=== PATIENT | female | born 1940 | race Caucasian/White ===

== ENCOUNTER 2016-07-03 15:59 | Inpatient (IN) | payer OTHER ==
[~2016-07-03] VITALS: Ht 157.5 cm; Wt 77.8 kg
[2016-07-03] MEDS ORDERED: DOXAZOSIN MESYLA4 MG PO (16:23)
[2016-07-03] MEDS ORDERED: HYDROCHLOROTHIA25 M1 PO (16:24)
[2016-07-03] MEDS ORDERED: TAPAZOLE5 MG PO (16:25)
[2016-07-03 16:48] LABS: BASO % 0.6 % (0.0-1.0); EOS # 0.2 10*3/uL (0.0-0.4); EOS % 2.9 % (1.0-4.0); HEMATOCRIT 34.8 % (37.0-47.0); HEMOGLOBIN 11.6 g/dl (12.0-16.0); LYMPH % 30.3 % (27.0-41.0); MEAN CELL VOLUME 87.4 fl (81.0-99.0); MEAN CORPUSCULAR HGB 29.1 pg (27.0-31.0); MEAN CORPUSCULAR HGB CONC 33.3 g/dl (33.0-37.0); MEAN PLATELET VOLUME 8.5 fl (9.6-12.3); MONO # 0.5 10*3/uL (0.1-1.0); MONO % 7.2 % (3.0-9.0); NEUT # 3.9 10*3/uL (2.3-7.9); NEUT % 58.7 % (47.0-73.0); PLATELET COUNT AUTOMATED 268 10*3/uL (130-400); RED BLOOD COUNT 3.98 10*6/uL (4.10-5.10); RED CELL DISTRI WIDTH 15.2 % (0-14.5); WHITE BLOOD COUNT 6.6 10*3/uL (4.8-10.8)
[2016-07-03 16:57] LABS: PROTHROMBIN TIME 10.5 SECONDS (9.0-12.4)
[2016-07-03 17:06] LABS: ALBUMIN 3.3 gm/dl (3.1-4.5); ALKALINE PHOSPHATASE 72 U/L (45-117); BILIRUBIN, TOTAL 0.4 mg/dl (0.2-1.0); BUN 23 mg/dl (7-24); CARBON DIOXIDE 28 mmol/L (21-32); CHLORIDE 104 mmol/L (98-107); CKMB 0.5 ng/ml (0.5-3.6); CPK 53 U/L (26-192); EST GLOM FILT AFRICAN AMERICAN > 60 ml/min; GLUCOSE 118 mg/dL (65-99); MAGNESIUM 2.3 mg/dL (1.5-2.1); POTASSIUM 3.3 mmol/L (3.5-5.1); SGOT/AST 19 IU/L (3-35); SGPT/ALT 19 U/L (12-78); SODIUM 143 mmol/L (136-145)
[2016-07-03 17:08] LABS: C-REACTIVE PROTEIN < 0.29 MG/DL (0-0.3); TROPONIN I < 0.015 ng/ml (<0.045)
[2016-07-03] MEDS ORDERED: ATORVASTATIN CA10 M1 PO (21:41)
[2016-07-03] MEDS ORDERED: VITAMIN D-32000 UNIT PO (22:40)
[2016-07-03] MEDS ORDERED: VITAMIN C500 M4 PO (22:41)
[2016-07-03] MEDS ORDERED: MAGNESIUM200 MG PO (22:41)
[2016-07-04 04:49] LABS: BUN 19 mg/dl (7-24); CARBON DIOXIDE 28 mmol/L (21-32); CHLORIDE 108 mmol/L (98-107); CHOLESTEROL 186 mg/dL (<200); EST GLOM FILT AFRICAN AMERICAN > 60 ml/min; GLUCOSE 114 mg/dL (65-99); POTASSIUM 3.9 mmol/L (3.5-5.1); SODIUM 143 mmol/L (136-145); TRIGLYCERIDES 64 mg/dl (<150); VLDL CHOLESTEROL 13 mg/dL (6-40)
[2016-07-04 04:58] LABS: FREE T4 0.87 ng/dl (0.76-1.46); HDL CHOLESTEROL 77 mg/dl (40-60); LDL CHOLESTEROL 96 mg/dL (9-159)
[2016-07-04 05:51] LABS: HEMOGLOBIN A1c 5.6 % (4.8-5.6)
[2016-07-04 06:08] LABS: VITAMIN D, 25-HYDROXY 23.6 ng/mL (30-100)
[2016-07-04 06:09] LABS: FOLIC ACID 16.19 ng/mL (>5.38)
[2016-07-04 06:19] LABS: BASO % 0.3 % (0.0-1.0); EOS % 0.1 % (1.0-4.0); HEMATOCRIT 32.9 % (37.0-47.0); HEMOGLOBIN 10.7 g/dl (12.0-16.0); IG # 0.1 10*3/uL (0.0-0.1); LYMPH # 1.4 10*3/uL (1.3-4.4); LYMPH % 10.2 % (27.0-41.0); MEAN CORPUSCULAR HGB 28.6 pg (27.0-31.0); MEAN CORPUSCULAR HGB CONC 32.5 g/dl (33.0-37.0); MEAN PLATELET VOLUME 9.2 fl (9.6-12.3); MONO # 0.8 10*3/uL (0.1-1.0); NEUT # 11.5 10*3/uL (2.3-7.9); PLATELET COUNT AUTOMATED 284 10*3/uL (130-400); RED BLOOD COUNT 3.74 10*6/uL (4.10-5.10); RED CELL DISTRI WIDTH 15.5 % (0-14.5); WHITE BLOOD COUNT 13.8 10*3/uL (4.8-10.8)
[2016-07-04 16:19] LABS: BILIRUBIN NEGATIVE (NEGATIVE); BLOOD NEGATIVE (NEGATIVE); CLARITY SL CLOUDY (CLEAR); COLOR YELLOW (YELLOW); GLUCOSE NEGATIVE (NEGATIVE); KETONE NEGATIVE (NEGATIVE); LEUKO ESTERASE NEGATIVE (NEGATIVE); NITRITE NEGATIVE (NEGATIVE); PROTEIN NEGATIVE (NEGATIVE); SPECIFIC GRAVITY <= 1.005 (1.005-1.030); UROBILINOGEN 0.2 E.U./dl (0.2-1.0)
[2016-07-04 16:31] LABS: BACTERIA 1+; EPITHELIAL CELLS 0-2; RBC 0-2 rbc/hpf (0-2); URINE REFLEX COMMENT NO (NO); WBC 0-2 wbc/hpf (0-5)
[2016-07-05] MEDS ORDERED: LOPRESSOR25 MG PO (10:35)
== END 2016-07-05 12:36 | disposition home or self-care (01) | DRG 312 ==
LOC: ED 15:59 → EDHOLD 20:16 → 4E 20:16
PROVIDERS: Internal Medicine Hospice and Palliative Medicine; Nurse Practitioner Family
DX: R55 Syncope and collapse (principal); E44.0 Moderate protein-calorie malnutrition; D64.9 Anemia, unspecified; E83.41 Hypermagnesemia; E05.90 Thyrotoxicosis, unspecified without thyrotoxic crisis or storm; I16.1 Hypertensive emergency; R73.9 Hyperglycemia, unspecified; E87.6 Hypokalemia; I10 Essential (primary) hypertension; D72.829 Elevated white blood cell count, unspecified; Z90.49 Acquired absence of other specified parts of digestive tract; Z98.51 Tubal ligation status; Z82.49 Family history of ischemic heart disease and other diseases of the circulatory system; Z82.5 Family history of asthma and other chronic lower respiratory diseases; Z88.8 Allergy status to other drugs, medicaments and biological substances; Z79.899 Other long term (current) drug therapy; Z68.31 Body mass index [BMI] 31.0-31.9, adult

== ENCOUNTER 2018-09-04 18:58 | Emergency (ER) | payer OTHER ==
[~2018-09-04] VITALS: Ht 157.4 cm; Wt 63.5 kg
--- NOTE | ~2018-09-04 | EKG ---
[place], [place] ELECTROCARDIOGRAM REPORT NAME: ZEFERINO MERIDA UNIT #: [id number] ROOM: DOCTOR: EPIPHANY DRAFT REPORT BIRTHDATE: [birth year] [facility] Test Date: 2018-09-04 Test Time: 21:21:26 Pat Name: ZEFERINO MERIDA Department: Room: Gender: F [employer]ocker: Re Ramirez : 1940 Requested By: NISHANT OLEA PA-C Order Number: [id number] Reading MD: Min Atkinson MD Measurements Intervals [place] Rate: 99 P: 75 MD: 240 QRS: 70 QRSD: 89 T: 90 QT: 347 QTc: 446 Interpretive Statements Sinus rhythm Prolonged MD interval Borderline repolarization abnormality No previous ECG available for comparison Electronically Signed On 09-05-2018 15:47:56 PDT by Min Atkinson MD CM:EKGRPT:ELECTROCARDIOGRAM REPORT 20 [id number] NISHANT OLEA PA-C EPIPHANY DRAFT REPORT NISHANT OLEA PA-C
[~2018-09-04 18:58] MED LIST: ATORVASTATIN CA10 M1 PO; DOXAZOSIN MESYLA4 MG PO; HYDROCHLOROTHIA25 M1 PO; LOPRESSOR25 MG PO; MAGNESIUM200 MG PO; TAPAZOLE5 MG PO; VITAMIN C500 M4 PO; VITAMIN D-32000 UNIT PO
[2018-09-04 19:48] LABS: BASO % 0.5 % (0.0-1.0); EOS # 0.2 10*3/uL (0.0-0.4); EOS % 2.4 % (1.0-4.0); HEMATOCRIT 35.4 % (37.0-47.0); HEMOGLOBIN 11.7 g/dl (12.0-16.0); LYMPH # 2.5 10*3/uL (1.3-4.4); LYMPH % 32.1 % (27.0-41.0); MEAN CELL VOLUME 88.5 fl (81.0-99.0); MEAN CORPUSCULAR HGB 29.3 pg (27.0-31.0); MEAN CORPUSCULAR HGB CONC 33.1 g/dl (33.0-37.0); MEAN PLATELET VOLUME 9.3 fl (9.6-12.3); MONO # 0.7 10*3/uL (0.1-1.0); MONO % 8.7 % (3.0-9.0); NEUT # 4.4 10*3/uL (2.3-7.9); NEUT % 56.2 % (47.0-73.0); PLATELET COUNT AUTOMATED 299 10*3/uL (130-400); RED CELL DISTRI WIDTH 13.8 % (0-14.5); WHITE BLOOD COUNT 7.8 10*3/uL (4.8-10.8)
[2018-09-04 20:00] LABS: ACT PARTIAL THROMBO TIME 20.9 SECONDS (20.0-32.1); INTERNATIONAL NORM RATIO 0.9 (2.0-3.5)
[2018-09-04 20:17] LABS: ALBUMIN 3.4 gm/dl (3.1-4.5); CREATININE 1.15 mg/dL (0.55-1.02); POTASSIUM 3.1 mmol/L (3.5-5.1); TOTAL PROTEIN 7.3 gm/dL (6.4-8.2)
== END 2018-09-04 21:35 | disposition short-term general hospital (02) ==
LOC: ED 18:58
PROVIDERS: Physician Assistant
DX: I70.291 Other atherosclerosis of native arteries of extremities, right leg (principal); I10 Essential (primary) hypertension; E78.5 Hyperlipidemia, unspecified; Z98.51 Tubal ligation status; Z90.49 Acquired absence of other specified parts of digestive tract; Z98.890 Other specified postprocedural states; Z79.899 Other long term (current) drug therapy; Z88.8 Allergy status to other drugs, medicaments and biological substances

== ENCOUNTER 2021-06-17 23:42 | Emergency (ER) | payer OTHER ==
[~2021-06-17] VITALS: Ht 157.4 cm; Wt 71.3 kg
[2021-06-18 04:44] LABS: BASO % 0.4 % (0.0-1.0); EOS # 0.1 10*3/uL (0.0-0.4); EOS % 1.4 % (1.0-4.0); HEMATOCRIT 33.7 % (37.0-47.0); LYMPH # 1.5 10*3/uL (1.3-4.4); LYMPH % 16.2 % (27.0-41.0); MEAN CELL VOLUME 89.9 fl (81.0-99.0); MEAN CORPUSCULAR HGB 30.4 pg (27.0-31.0); MEAN CORPUSCULAR HGB CONC 33.8 g/dl (33.0-37.0); MEAN PLATELET VOLUME 8.8 fl (9.6-12.3); MONO # 0.6 10*3/uL (0.1-1.0); MONO % 6.3 % (3.0-9.0); NEUT % 75.5 % (47.0-73.0); PLATELET COUNT AUTOMATED 259 10*3/uL (130-400); RED BLOOD COUNT 3.75 10*6/uL (4.10-5.10); RED CELL DISTRI WIDTH 15.6 % (0-14.5); WHITE BLOOD COUNT 9.3 10*3/uL (4.8-10.8)
[2021-06-18 04:53] LABS: INTERNATIONAL NORM RATIO 1.1 (2.0-3.5)
[2021-06-18 04:56] LABS: ALKALINE PHOSPHATASE 104 U/L (45-117); BUN 28 mg/dl (7-24); CHLORIDE 107 mmol/L (98-107); CREATININE 1.04 mg/dL (0.55-1.02); POTASSIUM 3.5 mmol/L (3.5-5.1); SGOT/AST 27 IU/L (3-35); SGPT/ALT 22 U/L (12-78); SODIUM 141 mmol/L (136-145); TOTAL PROTEIN 6.9 gm/dL (6.4-8.2)
== END 2021-06-18 07:21 | disposition short-term general hospital (02) ==
LOC: ED 23:42
PROVIDERS: Emergency Medicine
DX: S01.81XA Laceration without foreign body of other part of head, initial encounter (principal); I10 Essential (primary) hypertension; E66.9 Obesity, unspecified; E03.9 Hypothyroidism, unspecified; Z88.8 Allergy status to other drugs, medicaments and biological substances; Z79.899 Other long term (current) drug therapy; Z98.51 Tubal ligation status; Z90.89 Acquired absence of other organs; Z90.49 Acquired absence of other specified parts of digestive tract; Z98.890 Other specified postprocedural states; W18.39XA Other fall on same level, initial encounter; Y93.89 Activity, other specified; Y92.89 Other specified places as the place of occurrence of the external cause; Y99.8 Other external cause status

== ENCOUNTER → 2021-11-09 | Outpatient (CLI) | payer OTHER ==
[2021-11-09 12:50] LABS: BUN 29 mg/dl (7-24)
== END | disposition home or self-care (01) ==
LOC: LAB 12:20 → CT 13:00
PROVIDERS: ATTEND Urology
DX: K86.9 Disease of pancreas, unspecified (principal); K57.30 Diverticulosis of large intestine without perforation or abscess without bleeding; M47.816 Spondylosis without myelopathy or radiculopathy, lumbar region; M48.061 Spinal stenosis, lumbar region without neurogenic claudication

== ENCOUNTER 2023-04-28 15:49 | Emergency (ER) | payer OTHER ==
[~2023-04-28] VITALS: Ht 157.4 cm; Wt 66.7 kg
[2023-04-28 16:38] LABS: BASO % 0.5 % (0.0-1.0); EOS # 0.2 10*3/uL (0.0-0.4); EOS % 1.9 % (1.0-4.0); HEMATOCRIT 27.4 % (37.0-47.0); LYMPH # 0.9 10*3/uL (1.3-4.4); LYMPH % 10.9 % (27.0-41.0); MEAN CELL VOLUME 97.2 fl (81.0-99.0); MEAN CORPUSCULAR HGB 30.1 pg (27.0-31.0); MEAN PLATELET VOLUME 9.6 fl (9.6-12.3); MONO # 0.7 10*3/uL (0.1-1.0); MONO % 7.8 % (3.0-9.0); NEUT # 6.7 10*3/uL (2.3-7.9); NEUT % 78.7 % (47.0-73.0); PLATELET COUNT AUTOMATED 333 10*3/uL (130-400); RED BLOOD COUNT 2.82 10*6/uL (4.10-5.10); RED CELL DISTRI WIDTH 16.4 % (0-14.5); WHITE BLOOD COUNT 8.6 10*3/uL (4.8-10.8)
[2023-04-28 16:55] LABS: POTASSIUM 4.3 mmol/L (3.4-5.1)
[2023-04-28] MEDS ORDERED: MEDROL DOSEPAK4 MG PO (17:42)
[2023-04-28] MEDS ORDERED: VIBRAMYCIN100 MG PO (17:42)
[2023-04-28] MEDS ORDERED: CEPHALEXIN500 M1 PO (17:42)
[2023-04-28] MEDS ORDERED: SEPTDS PO (17:55)
== END 2023-04-28 17:47 | disposition home or self-care (01) ==
LOC: ED 15:49
PROVIDERS: Physician Assistant Medical
DX: L03.116 Cellulitis of left lower limb (principal); I13.0 Hypertensive heart and chronic kidney disease with heart failure and stage 1 through stage 4 chronic kidney disease, or unspecified chronic kidney disease; N18.30 Chronic kidney disease, stage 3 unspecified; I50.9 Heart failure, unspecified; E78.5 Hyperlipidemia, unspecified; Z86.718 Personal history of other venous thrombosis and embolism; E03.9 Hypothyroidism, unspecified; Z88.8 Allergy status to other drugs, medicaments and biological substances; Z90.49 Acquired absence of other specified parts of digestive tract; Z98.890 Other specified postprocedural states; Z90.89 Acquired absence of other organs; Z98.51 Tubal ligation status

== ENCOUNTER → 2023-05-15 | Outpatient (CLI) | payer OTHER ==
[~2023-05-15] MED LIST changes: +CEPHALEXIN500 M1 PO; +MEDROL DOSEPAK4 MG PO; +SEPTDS PO; +VIBRAMYCIN100 MG PO
== END | disposition home or self-care (01) ==
LOC: US 01:40
PROVIDERS: ATTEND Internal Medicine
DX: I73.9 Peripheral vascular disease, unspecified (principal); R60.0 Localized edema; N18.9 Chronic kidney disease, unspecified; J98.4 Other disorders of lung

== ENCOUNTER → 2023-05-31 | Outpatient (CLI) | payer MEDICARE | END | disposition home or self-care (01) | LOC: CARD 00:15 | PROVIDERS: ATTEND Internal Medicine | DX: I08.8 Other rheumatic multiple valve diseases (principal) ==

== ENCOUNTER → 2023-06-20 | Outpatient (CLI) | payer MEDICARE ==
[~2023-06-20] MED LIST changes: +ALLOPURINOL100 MG PO; +BUMETANIDE2 MG PO; +COREG6.25 MG PO; +ELIQUIS5 M1 PO; +ENTRESTO 24 MG1 EACH PO; +JARDIANCE10 MG PO; +NEURONTIN100 MG PO; +POTASSIUM CHLO20 ME4 PO; +POTASSIUM99 M7 PO
== END | disposition home or self-care (01) ==
LOC: RESCLI 02:46
PROVIDERS: ATTEND Student in an Organized Health Care Education/Training Program
DX: E87.6 Hypokalemia (principal); N32.81 Overactive bladder; I82.409 Acute embolism and thrombosis of unspecified deep veins of unspecified lower extremity; N89.8 Other specified noninflammatory disorders of vagina; M10.9 Gout, unspecified; H92.09 Otalgia, unspecified ear; Z00.00 Encounter for general adult medical examination without abnormal findings; E78.5 Hyperlipidemia, unspecified; I11.0 Hypertensive heart disease with heart failure; I50.9 Heart failure, unspecified; Z98.890 Other specified postprocedural states; Z79.899 Other long term (current) drug therapy; Z88.8 Allergy status to other drugs, medicaments and biological substances

== ENCOUNTER 2023-06-27 13:01 | Inpatient (IN) | payer MEDICARE ==
[~2023-06-27] VITALS: Ht 157.5 cm; Wt 63.6 kg
[~2023-06-27 13:01] MED LIST changes: -ALLOPURINOL100 MG PO; -BUMETANIDE2 MG PO; +CHAIR CUSHION DEVICE ONE; -COREG6.25 MG PO; -ELIQUIS5 M1 PO; -ENTRESTO 24 MG1 EACH PO; -JARDIANCE10 MG PO; -NEURONTIN100 MG PO; -POTASSIUM CHLO20 ME4 PO; -POTASSIUM99 M7 PO
[2023-06-27 13:10] VITALS: BP 138/72
[2023-06-27 13:31] LABS: BASO % 0.6 % (0.0-1.0); EOS # 0.1 10*3/uL (0.0-0.4); EOS % 2.1 % (1.0-4.0); HEMATOCRIT 34.4 % (37.0-47.0); LYMPH # 1.6 10*3/uL (1.3-4.4); MEAN CELL VOLUME 91.5 fl (81.0-99.0); MEAN CORPUSCULAR HGB 27.9 pg (27.0-31.0); MEAN CORPUSCULAR HGB CONC 30.5 g/dl (33.0-37.0); MEAN PLATELET VOLUME 8.8 fl (9.6-12.3); MONO # 0.8 10*3/uL (0.1-1.0); NEUT # 4.2 10*3/uL (2.3-7.9); PLATELET COUNT AUTOMATED 265 10*3/uL (130-400); RED BLOOD COUNT 3.76 10*6/uL (4.10-5.10); RED CELL DISTRI WIDTH 18.5 % (0-14.5); WHITE BLOOD COUNT 6.8 10*3/uL (4.8-10.8)
[2023-06-27 13:46] LABS: ACT PARTIAL THROMBO TIME 27.6 SECONDS (20.0-32.1)
[2023-06-27 13:52] LABS: ALKALINE PHOSPHATASE 103 U/L (46-116); BUN 27 mg/dl (9-23); CHLORIDE 103 mmol/L (98-107); LIPASE 37 U/L (12-53); SGPT/ALT 11 U/L (5-49); TOTAL PROTEIN 7.3 gm/dL (6.0-8.0)
[2023-06-27] MEDS ORDERED: FUROSEMIDE 40 MG/4 ML VIAL IV ONE (15:25)
[2023-06-27] MEDS ORDERED: Ceftriaxone Sodium 2 GM,IV 1 EA in SYRINGE INFUSION 20 ML IV SCH (17:00)
[2023-06-27] MEDS ORDERED: ELIQUIS5 M1 PO (17:00)
[2023-06-27] MEDS ORDERED: NEURONTIN100 MG PO (17:01)
[2023-06-27] MEDS ORDERED: POTASSIUM99 M7 PO (17:02)
[2023-06-27] MEDS ORDERED: ALLOPURINOL100 MG PO (17:03)
[2023-06-27] MEDS ORDERED: BUMETANIDE2 MG PO (17:04)
[2023-06-27 19:43] VITALS: BP 159/57
[2023-06-27 21:00] VITALS: BP 125/60
[2023-06-27] MEDS ORDERED: GABAPENTIN 100 MG CAP PO SCH (22:00)
[2023-06-27] MEDS ORDERED: APIXABAN 5 MG TAB PO SCH (22:00)
[2023-06-27] MEDS ORDERED: CARVEDILOL 6.25 MG TAB PO SCH (22:00)
[2023-06-28] VITALS: BP 132/50
[2023-06-28 06:49] LABS: BASO % 0.7 % (0.0-1.0); EOS # 0.2 10*3/uL (0.0-0.4); EOS % 2.9 % (1.0-4.0); HEMATOCRIT 33.2 % (37.0-47.0); LYMPH # 1.5 10*3/uL (1.3-4.4); MEAN CORPUSCULAR HGB 27.9 pg (27.0-31.0); MEAN CORPUSCULAR HGB CONC 30.7 g/dl (33.0-37.0); MEAN PLATELET VOLUME 9.1 fl (9.6-12.3); MONO # 0.8 10*3/uL (0.1-1.0); MONO % 14.2 % (3.0-9.0); NEUT # 3.3 10*3/uL (2.3-7.9); PLATELET COUNT AUTOMATED 257 10*3/uL (130-400); RED BLOOD COUNT 3.65 10*6/uL (4.10-5.10); RED CELL DISTRI WIDTH 18.6 % (0-14.5); WHITE BLOOD COUNT 5.8 10*3/uL (4.8-10.8)
[2023-06-28 07:16] LABS: POTASSIUM 3.5 mmol/L (3.4-5.1)
[2023-06-28 08:00] VITALS: BP 111/54
[2023-06-28] MEDS ORDERED: ALLOPURINOL 100 MG TAB PO SCH (10:00)
[2023-06-28] MEDS ORDERED: METHIMAZOLE 5 MG TABLET PO SCH (10:00)
[2023-06-28] MEDS ORDERED: POTASSIUM CHLORIDE 10 MEQ TAB PO SCH (10:00)
[2023-06-28] MEDS ORDERED: BUMETANIDE 1 MG/4 ML VIAL IV SCH (10:00)
[2023-06-28] MEDS ORDERED: Menthol/Zinc Oxide 4 GM THIN T PRN (10:15)
[2023-06-28 12:00] VITALS: BP 111/54
[2023-06-28 16:00] VITALS: BP 123/62
[2023-06-28 20:00] VITALS: BP 102/45
[2023-06-28] MEDS ORDERED: Menthol/Zinc Oxide 4 GM THIN T SCH (21:00)
[2023-06-28] MEDS ORDERED: SACUBITRIL/VALSARTAN 24 MG-26 MG TABLET PO SCH (22:00)
[2023-06-28] MEDS ORDERED: CARVEDILOL 3.125 MG TAB PO SCH (22:00)
[2023-06-29] VITALS: BP 146/58
[2023-06-29 08:00] VITALS: BP 107/46
[2023-06-29 09:55] LABS: POTASSIUM 3.4 mmol/L (3.4-5.1)
[2023-06-29] MEDS ORDERED: BUMETANIDE 1 MG/4 ML VIAL IV SCH (10:00)
[2023-06-29] MEDS ORDERED: EMPAGLIFLOZIN 10 MG TABLET PO SCH (10:00)
[2023-06-29 12:00] VITALS: BP 102/56
[2023-06-29 16:00] VITALS: BP 99/38
[2023-06-29] MEDS ORDERED: POTASSIUM CHLORIDE 20 MEQ TAB PO ONE (18:55)
[2023-06-29] MEDS ORDERED: MAGNESIUM SULFATE 100 ML IV ONE (18:55)
[2023-06-29 20:00] VITALS: BP 108/47
[2023-06-29] MEDS ORDERED: Ceftriaxone Sodium 2 GM,IV 1 EA in SYRINGE INFUSION 20 ML IV SCH (22:00)
[2023-06-30] VITALS: BP 110/50
[2023-06-30 06:52] LABS: BASO % 0.5 % (0.0-1.0); EOS # 0.2 10*3/uL (0.0-0.4); EOS % 2.6 % (1.0-4.0); HEMATOCRIT 31.6 % (37.0-47.0); LYMPH # 1.7 10*3/uL (1.3-4.4); LYMPH % 25.5 % (27.0-41.0); MEAN CELL VOLUME 89.5 fl (81.0-99.0); MEAN CORPUSCULAR HGB CONC 31.3 g/dl (33.0-37.0); MEAN PLATELET VOLUME 9.7 fl (9.6-12.3); MONO # 0.9 10*3/uL (0.1-1.0); MONO % 13.2 % (3.0-9.0); NEUT # 3.8 10*3/uL (2.3-7.9); PLATELET COUNT AUTOMATED 263 10*3/uL (130-400); RED BLOOD COUNT 3.53 10*6/uL (4.10-5.10); RED CELL DISTRI WIDTH 18.6 % (0-14.5); WHITE BLOOD COUNT 6.5 10*3/uL (4.8-10.8)
[2023-06-30 07:20] LABS: POTASSIUM 3.5 mmol/L (3.4-5.1)
[2023-06-30 08:00] VITALS: BP 103/35
[2023-06-30] MEDS ORDERED: POTASSIUM CHLORIDE 20 MEQ TAB PO SCH (10:00)
[2023-06-30 12:00] VITALS: BP 101/40
[2023-06-30 16:00] VITALS: BP 104/48
[2023-06-30] MEDS ORDERED: BUMETANIDE 1 MG/4 ML VIAL IV ONE (17:05)
[2023-06-30 20:00] VITALS: BP 121/43
[2023-07-01] VITALS: BP 113/51
[2023-07-01 05:32] LABS: POTASSIUM 3.6 mmol/L (3.4-5.1)
[2023-07-01 06:12] LABS: BASO # 0.1 10*3/uL (0.0-0.1); BASO % 0.8 % (0.0-1.0); EOS # 0.3 10*3/uL (0.0-0.4); EOS % 3.8 % (1.0-4.0); HEMATOCRIT 30.6 % (37.0-47.0); LYMPH % 30.4 % (27.0-41.0); MEAN CELL VOLUME 89.7 fl (81.0-99.0); MEAN CORPUSCULAR HGB 28.2 pg (27.0-31.0); MEAN CORPUSCULAR HGB CONC 31.4 g/dl (33.0-37.0); MEAN PLATELET VOLUME 9.7 fl (9.6-12.3); MONO # 0.9 10*3/uL (0.1-1.0); MONO % 13.7 % (3.0-9.0); NEUT # 3.4 10*3/uL (2.3-7.9); NEUT % 51.1 % (47.0-73.0); PLATELET COUNT AUTOMATED 266 10*3/uL (130-400); RED BLOOD COUNT 3.41 10*6/uL (4.10-5.10); RED CELL DISTRI WIDTH 18.6 % (0-14.5); WHITE BLOOD COUNT 6.6 10*3/uL (4.8-10.8)
[2023-07-01 07:48] VITALS: BP 96/50
[2023-07-01] MEDS ORDERED: JARDIANCE10 MG PO (09:07)
[2023-07-01] MEDS ORDERED: POTASSIUM CHLO20 ME4 PO (09:07)
[2023-07-01] MEDS ORDERED: ENTRESTO 24 MG1 EACH PO ×2 (09:07→09:08)
[2023-07-01] MEDS ORDERED: COREG6.25 MG PO (09:07)
[2023-07-01] MEDS ORDERED: CARVEDILOL 6.25 MG TAB PO ONE (09:30)
[2023-07-01] MEDS ORDERED: EMPAGLIFLOZIN 10 MG TABLET PO ONE (09:35)
== END 2023-07-01 12:40 | disposition home or self-care (01) | DRG 291 ==
LOC: ED 13:01 → EDHOLD 15:46 → 4E 15:46
PROVIDERS: Emergency Medicine; ADMIT Internal Medicine; ATTEND Internal Medicine
DX: I13.0 Hypertensive heart and chronic kidney disease with heart failure and stage 1 through stage 4 chronic kidney disease, or unspecified chronic kidney disease (principal); I50.33 Acute on chronic diastolic (congestive) heart failure; I48.21 Permanent atrial fibrillation; I47.29 Other ventricular tachycardia; I48.0 Paroxysmal atrial fibrillation; M10.9 Gout, unspecified; D64.9 Anemia, unspecified; I08.0 Rheumatic disorders of both mitral and aortic valves; N18.32 Chronic kidney disease, stage 3b; E03.9 Hypothyroidism, unspecified; L89.152 Pressure ulcer of sacral region, stage 2; E87.6 Hypokalemia; M48.061 Spinal stenosis, lumbar region without neurogenic claudication; M54.16 Radiculopathy, lumbar region; Z88.8 Allergy status to other drugs, medicaments and biological substances; Z90.49 Acquired absence of other specified parts of digestive tract; Z98.51 Tubal ligation status; Z82.49 Family history of ischemic heart disease and other diseases of the circulatory system; Z83.6 Family history of other diseases of the respiratory system

== ENCOUNTER → 2023-10-09 | Outpatient (CLI) | payer MEDICARE ==
[~2023-10-09] MED LIST changes: +ALLOPURINOL100 MG PO; +BUMETANIDE2 MG PO; -CHAIR CUSHION DEVICE ONE; +COREG6.25 MG PO; +ELIQUIS5 M1 PO; +ENTRESTO 24 MG1 EACH PO; +JARDIANCE10 MG PO; +Lidocaine Hydrochloride 5 ML AMP ONE; +NEURONTIN100 MG PO; +POTASSIUM CHLO20 ME4 PO; +POTASSIUM99 M7 PO; +SODIUM BICARBONATE 4.2% 5 ML VIAL ONE
[2023-10-09 10:46] LABS: ACT PARTIAL THROMBO TIME 24.8 SECONDS (20.0-32.1)
== END | disposition home or self-care (01) ==
LOC: SDC 11:00 → EDSTATUS 11:00
PROVIDERS: Radiology Diagnostic Radiology; ATTEND Internal Medicine
DX: E04.2 Nontoxic multinodular goiter (principal); E05.90 Thyrotoxicosis, unspecified without thyrotoxic crisis or storm; E55.9 Vitamin D deficiency, unspecified; E78.5 Hyperlipidemia, unspecified; E05.20 Thyrotoxicosis with toxic multinodular goiter without thyrotoxic crisis or storm; E21.3 Hyperparathyroidism, unspecified; E87.6 Hypokalemia; I48.91 Unspecified atrial fibrillation; M81.0 Age-related osteoporosis without current pathological fracture; M10.9 Gout, unspecified; E61.1 Iron deficiency; E66.3 Overweight; Z79.899 Other long term (current) drug therapy; Z79.890 Hormone replacement therapy; Z98.51 Tubal ligation status; Z90.89 Acquired absence of other organs; Z98.818 Other dental procedure status; Z98.890 Other specified postprocedural states; Z88.8 Allergy status to other drugs, medicaments and biological substances

== ENCOUNTER → 2024-01-07 | Outpatient (CLI) | payer MEDICARE ==
[~2024-01-07] MED LIST changes: -Lidocaine Hydrochloride 5 ML AMP ONE; -SODIUM BICARBONATE 4.2% 5 ML VIAL ONE
[2024-01-07 10:16] LABS: BASO % 0.7 % (0.0-1.0); EOS # 0.2 10*3/uL (0.0-0.4); HEMATOCRIT 37.6 % (37.0-47.0); LYMPH # 1.3 10*3/uL (1.3-4.4); LYMPH % 23.8 % (27.0-41.0); MEAN CELL VOLUME 91.7 fl (81.0-99.0); MEAN CORPUSCULAR HGB 30.2 pg (27.0-31.0); MEAN PLATELET VOLUME 9.1 fl (9.6-12.3); MONO # 0.5 10*3/uL (0.1-1.0); MONO % 8.5 % (3.0-9.0); NEUT # 3.6 10*3/uL (2.3-7.9); NEUT % 63.8 % (47.0-73.0); PLATELET COUNT AUTOMATED 211 10*3/uL (130-400); RED CELL DISTRI WIDTH 15.5 % (0-14.5); WHITE BLOOD COUNT 5.6 10*3/uL (4.8-10.8)
[2024-01-07 11:27] LABS: VITAMIN D, 25-HYDROXY 47.4 ng/mL (30-100)
[2024-01-07 11:33] LABS: FREE T4 1.12 ng/dl (0.89-1.76); POTASSIUM 3.5 mmol/L (3.4-5.1); TOTAL PROTEIN 7.2 gm/dL (6.0-8.0); URIC ACID 5.3 mg/dL (3.1-7.8)
== END | disposition home or self-care (01) ==
LOC: LAB 09:44
PROVIDERS: ATTEND Internal Medicine
DX: Z13.0 Encounter for screening for diseases of the blood and blood-forming organs and certain disorders involving the immune mechanism (principal); Z13.1 Encounter for screening for diabetes mellitus; Z13.21 Encounter for screening for nutritional disorder; Z13.220 Encounter for screening for lipoid disorders; Z13.228 Encounter for screening for other metabolic disorders; Z13.29 Encounter for screening for other suspected endocrine disorder; Z13.6 Encounter for screening for cardiovascular disorders; Z13.89 Encounter for screening for other disorder; E05.90 Thyrotoxicosis, unspecified without thyrotoxic crisis or storm; E55.9 Vitamin D deficiency, unspecified; E78.5 Hyperlipidemia, unspecified; M10.9 Gout, unspecified; D64.9 Anemia, unspecified; N18.32 Chronic kidney disease, stage 3b; D50.8 Other iron deficiency anemias; R73.9 Hyperglycemia, unspecified